=== PATIENT | female | born 2000 | race Two or more races ===

== ENCOUNTER → 2025-08-24 09:48 | Outpatient (BNVA) | payer OTHER, SELFPAY | PROVIDERS: Visit Provider Internal Medicine | DX: S00.83XA Contusion of other part of head, initial encounter (principal); Y04.0XXA Assault by unarmed brawl or fight, initial encounter; R51.9 Headache, unspecified | CPT/HCPCS: 99202 ==

== ENCOUNTER → 2025-08-27 08:26 | Outpatient (BNVA) | payer OTHER, SELFPAY | PROVIDERS: Visit Provider Internal Medicine | DX: S00.83XA Contusion of other part of head, initial encounter (principal); Y04.0XXA Assault by unarmed brawl or fight, initial encounter; Z02.79 Encounter for issue of other medical certificate | CPT/HCPCS: 99213 ==